=== PATIENT | female | born 1965 | race Caucasian/White ===

== ENCOUNTER 2016-06-25 19:34 | Emergency (ER) | payer MEDICAID, OTHER ==
[2016-06-25] MEDS ORDERED: IBUPROFEN 600 MG TABLET PO STA (21:05)
[2016-06-25] MEDS ORDERED: ACETAMINOPHEN 325 MG TABLET PO STA (21:06)
[2016-06-25] MEDS ORDERED: ACETAMINOPHEN 325 MG TABLET PO ONE (21:11)
[2016-06-25] MEDS ORDERED: IBUPROFEN 600 MG TABLET PO ONE (21:11)
== END 2016-06-25 21:30 | disposition home or self-care (01) ==
DX: S90.31XA Contusion of right foot, initial encounter (principal); W20.8XXA Other cause of strike by thrown, projected or falling object, initial encounter; Y99.0 Civilian activity done for income or pay; I10 Essential (primary) hypertension; Z87.42 Personal history of other diseases of the female genital tract; Z87.442 Personal history of urinary calculi; M19.90 Unspecified osteoarthritis, unspecified site; F17.200 Nicotine dependence, unspecified, uncomplicated
CPT/HCPCS: 1040M; 73630; 99282; 99283; A9270

== ENCOUNTER 2016-10-22 08:18 | Outpatient (CLI) | payer MEDICAID ==
[2016-10-22 13:19] LABS: BASOPHILS # (AUTO) 0.1 10^3/uL (0.0-0.1); BASOPHILS % (AUTO) 1.2 %; EOSINOPHILS # (AUTO) 0.1 10^3/uL (0.0-0.7); EOSINOPHILS % (AUTO) 2.3 %; HGB - HEMOGLOBIN 14.6 g/dL (12.0-16.0); LYMPHOCYTES # (AUTO) 2.2 10^3/uL (1.5-3.5); LYMPHOCYTES % (AUTO) 36.8 %; MEAN CORPUSCULAR HEMOGLOBIN 29.9 pg (27.0-31.0); MEAN CORPUSCULAR HGB CONC 33.9 g/dL (32.0-36.0); MEAN CORPUSCULAR VOLUME 88.2 fL (81.0-99.0); MEAN PLATELET VOLUME 9.4 fL (7.9-10.8); MONOCYTES # (AUTO) 0.4 10^3/uL (0.0-1.0); MONOCYTES % (AUTO) 7.3 %; NEUTROPHILS # (AUTO) 3.2 10^3/uL (1.5-6.6); NEUTROPHILS % (AUTO) 52.4 %; RED BLOOD COUNT 4.87 10^6/uL (4.20-5.40); RED CELL DISTRIBUTION WIDTH 13.4 % (12.0-15.0)
[2016-10-22 13:42] LABS: ALBUMIN/GLOBULIN RATIO 1.3 (1.0-2.2); BILIRUBIN,TOTAL 0.3 mg/dL (0.2-1.0); BUN - BLOOD UREA NITROGEN 15 mg/dL (6-20); CALCIUM 9.1 mg/dL (8.5-10.3); CARBON DIOXIDE - CO2 25 mmol/L (21-32); CHLORIDE 108 mmol/L (101-111); CHOL/HDL RATIO 4.4 (<4.4); CHOLESTEROL 233 mg/dL; CREATININE 0.9 mg/dL (0.4-1.0); GFR - MDRD 67 (>89); GLUCOSE 80 mg/dL (70-100); HDL CHOLESTEROL 53 mg/dL; LDL/HDL RATIO 2.8 (<4.4); SODIUM 140 mmol/L (135-145); TOTAL PROTEIN 6.9 g/dL (6.7-8.2); TRIGLYCERIDES 148 mg/dL; VLDL CHOLESTEROL 30 mg/dL
== END 2016-10-22 08:19 | disposition home or self-care (01) ==
LOC: LAB.N 08:18
PROVIDERS: ATTEND Family Medicine
DX: I10 Essential (primary) hypertension (principal); F17.210 Nicotine dependence, cigarettes, uncomplicated
CPT/HCPCS: 36415; 80050; 80061

== ENCOUNTER 2016-11-11 14:36 | Outpatient (CLI) | payer MEDICAID ==
--- NOTE | 2016-11-12 11:36 | XRAY Report ---
TWO VIEW LEFT SHOULDER: 11/11/2016 CLINICAL HISTORY: Pain. FINDINGS: There is no fracture, focus of destruction, or malalignment. Mild degenerative changes are noted at the acromioclavicular and glenohumeral joints. The coracoclavicular relationship is preserv ed. The soft tissues are normal. The visualized lung apex is clear. IMPRESSION: MILD DEGENERATIVE CHANGES. NO ACUTE PROCESS. JOB #: [id number] EXT JOB #:[id number]
== END 2016-11-11 14:37 | disposition home or self-care (01) ==
LOC: DI.N 14:36
PROVIDERS: ATTEND Family Medicine
DX: M19.012 Primary osteoarthritis, left shoulder (principal)

== ENCOUNTER 2017-02-18 09:37 | Outpatient (CLI) | payer MEDICAID ==
--- NOTE | 2017-02-18 16:07 | MRI Report ---
EXAM: LEFT SHOULDER MRI WITHOUT CONTRAST EXAM DATE: 02/18/2017 10:17 AM. CLINICAL HISTORY: Shoulder pain, left. COMPARISON: None. TECHNIQUE: Multiplanar, multisequence T1-weighted and fluid-sensitive sequences of the shoulder witho ut contrast. Other: None. FINDINGS: Acromioclavicular Region: The acromion is type II. AC joint is moderately osteoarthritic. The coracoa cromial and coracoclavicular ligaments are intact. Trace amount of bursal fluid. Glenohumeral Region: No subluxation. No effusion or loose bodies. The articular cartilage is unremark able. The glenohumeral ligaments and joint capsule are unremarkable. Bone Marrow: No fracture, marrow edema or bone lesions. Labrum: The labrum is unremarkable on this nonarthrographic study. Musculature/Rotator Cuff: Some increased T2 signal seen in the distal supraspinatus and infraspinatus portions of the cuff without partial or full-thickness fluid-filled gap. Subscapularis and teres min or are normal. No proximal muscular edema or fatty atrophy. Biceps Tendon: The long head of the biceps tendon and biceps colin are intact. Other: The subcutaneous tissues are unremarkable. IMPRESSION: 1. Type II unipartite undersurface osseous acromion shape. AC joint is moderately osteoarthritic. Tra ce amount of bursal fluid is seen. 2. Tendinopathy seen distal supraspinatus and infraspinatus. No partial or full-thickness fluid-fille d gaps are identified. No proximal muscular edema or fatty atrophy. [facility] MUSCULOSKELETAL [facility] SECTION Referring Provider Line: [phone] SITE ID: [id number]
== END 2017-02-18 09:38 | disposition home or self-care (01) ==
LOC: DI 09:37
PROVIDERS: ATTEND Family Medicine
DX: M19.012 Primary osteoarthritis, left shoulder (principal); M75.92 Shoulder lesion, unspecified, left shoulder

== ENCOUNTER 2017-07-04 23:47 | Emergency (ER) | payer MEDICAID ==
--- NOTE | 2017-07-05 01:09 | XRAY Report ---
EXAM: RIGHT WRIST RADIOGRAPHY EXAM DATE: 07/05/2017 01:01 AM. CLINICAL HISTORY: Wrist pain after injury. COMPARISON: 04/11/2006. TECHNIQUE: 2 views. FINDINGS: Bones: No fracture seen. Joints: No dislocation. Joint spaces appear intact. Soft Tissues: There may be minimal soft tissue swelling. IMPRESSION: 1. No acute fracture or dislocation seen. [facility] Referring Provider Line: [phone] SITE ID: [id number]
--- NOTE | 2017-07-05 01:10 | XRAY Preliminary Report ---
Exam: XR SHOULDER 2 VIEW RT IMPRESSION: 1. No acute abnormality seen in the shoulder. [facility] SITE ID: [id number]
--- NOTE | 2017-07-05 01:10 | XRAY Report ---
EXAM: RIGHT SHOULDER RADIOGRAPHY EXAM DATE: 07/05/2017 01:01 AM. CLINICAL HISTORY: Shoulder pain after injury. COMPARISON: None. TECHNIQUE: 2 views. FINDINGS: Bones: No fracture seen. Joints: The glenohumeral and acromioclavicular joints are intact. Soft tissues: Grossly unremarkable. IMPRESSION: 1. No acute abnormality seen in the shoulder. [facility] Referring Provider Line: [phone] SITE ID: [id number]
--- NOTE | 2017-07-05 01:12 | XRAY Preliminary Report ---
Exam: XR ELBOW 3 VIEW RT IMPRESSION: 1. Soft tissue swelling. No acute osseous abnormality seen. [facility] SITE ID: [id number]
--- NOTE | 2017-07-05 01:12 | XRAY Report ---
EXAM: RIGHT ELBOW RADIOGRAPHY EXAM DATE: 07/05/2017 01:00 AM. CLINICAL HISTORY: Elbow pain and swelling after injury. COMPARISON: None. TECHNIQUE: 3 views. FINDINGS: Bones: No acute fracture seen. Joints: No dislocation. Joint spaces are relatively well-preserved. No joint effusion identified. Soft Tissues: Soft tissue swelling. IMPRESSION: 1. Soft tissue swelling. No acute osseous abnormality seen. [facility] Referring Provider Line: [phone] SITE ID: [id number]
--- NOTE | 2017-07-05 01:13 | XRAY Preliminary Report ---
Exam: XR HIP W/PELVIS 2-3V RT IMPRESSION: 1. No acute abnormality seen in the pelvis or hip. [facility] SITE ID: [id number]
--- NOTE | 2017-07-05 01:13 | XRAY Report ---
EXAM: RIGHT HIP AND PELVIS RADIOGRAPHY EXAM DATE: 07/05/2017 01:00 AM. HISTORY: Right hip pain after injury. COMPARISONS: None. TECHNIQUE: 1 view of the pelvis and 1 view of the hip. FINDINGS: Bones: No fracture seen. Joints: The bilateral hip, pubis symphysis, and sacroiliac joints are preserved. Soft Tissues: Grossly unremarkable. IMPRESSION: 1. No acute abnormality seen in the pelvis or hip. [facility] Referring Provider Line: [phone] SITE ID: [id number]
--- NOTE | 2017-07-05 01:14 | ED Physician Documentation ---
PD HPI Fall - Stated complaint Stated Complaint: FALL - Chief complaint Chief Complaint: Trauma Ext - History obtained from History obtained from: Patient, Family - History of Present Illness Mechanism of injury: Slipped Fall distance: Standing position Where injury occurred: Street Timing - onset: Today Injury(ies) location: Right Upper Extremity, Right Lower Extremity Quality of pain: Pain, Aching Associated symptoms: No: LOC, AMS, Amnesia Contributing factors: Intoxicated Similar symptoms before: Has not had sx before Recently seen: Not recently seen - Additional information Additional information: Patient is a 52 year old female who presented to the emergency department after falling. According to patient and her mother patient was at an event tonight and had been drinking some wine. Patient slipped and fell. There were paramedics who treated the patient with ice. Patient did not hit her head and denies any loc. As patient was driven home she developed more tenderness and swelling. the symptoms were worse in her right elbow but patient reports pain in her right shoulder, ribs, elbow, wrist and hip. Review of Systems Eyes: denies: Decreased vision, Photophobia Ears: denies: Drainage/discharge Nose: denies: Epistaxis Cardiac: denies: Chest pain / pressure GI: reports: Nausea, Vomiting : reports: Reviewed and negative Skin: reports: Abrasion (s). 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: Ovarian cysts : Kidney stones HEENT: Other Psych: None Musculoskeletal: Osteoarthritis Derm: None - Past Surgical History Past Surgical History: Yes Ortho: ACL reconstruction, Arthroscopic surgery, Other /LAND MOBILE RADIO TECHNICIAN: Dilation and currettage, Other - Present Medications Home Medications: Ambulatory Orders Medication Instructions Recorded Confirmed Lisinopril 10 mg PO DAILY 06/25/16 06/25/16 Gabapentin 1 tab PO DAILY 07/04/17 07/04/17 Meloxicam 1 tab PO DAILY 07/04/17 07/04/17 Methocarbamol [Robaxin] 1 tab PO DAILY 07/04/17 07/04/17 - Allergies Allergies/Adverse Reactions: Allergies Allergy/AdvReac Type Severity Reaction Status Date / Time oxycodone HCl * AdvReac Mild Itching Verified 07/04/17 23:54 [From Percocet] propoxyphene napsylate * AdvReac Mild Itching Verified 07/04/17 23:54 [From Darvocet-N] hydromorphone HCl * AdvReac Itching Verified 07/04/17 23:54 [From Dilaudid] - Social History Does the pt smoke?: Yes Smoking Status: Current every day smoker Does the pt drink ETOH?: Yes Does the pt have substance abuse?: No - Immunizations Immunizations are current?: Yes - POLST Patient has POLST: No PD ED PE NORMAL - Vitals Vital signs reviewed: Yes - General General: Alert and oriented X 3, No acute distress - HEENT HEENT: Atraumatic - Neck Neck: No bony TTP - Cardiac Cardiac: RRR, No murmur - Respiratory Respiratory: No respiratory distress - Abdomen Abdomen: Soft - Neuro Neuro: Alert and oriented X 3, No motor deficit, Normal speech Eye Opening: Spontaneous Motor: Obeys Commands Verbal: Oriented GCS Score: 15 PD ED PE EXPANDED - Cardiac Cardiac: Chest wall TTP (mild tenderness to palpation of right chest wall) - Derm Derm: Abrasion (s), Bruising - Extremities Extremities: Right elbow (tenderness, ecchymosis and swelling ), Right forearm ( superficial abrasion), Right wrist (tenderness to palpation), Right hip ( tenderness to palpation ) Results - Vitals Vitals: Vital Signs - 24 hr 07/04/17 07/05/17 23:51 01:46 Temperature 36.0 C L Heart Rate 74 70 Respiratory 18 16 Rate Blood Pressure 199/101 H 165/90 H O2 Saturation 100 98 Oxygen O2 Source Room air - Rads (name of study) right shoulder Radiology: Final report received (normal) right elbow Radiology: Final report received (swelling but no fracture or dislocation) right wrist Radiology: Final report received (normla) rib series Radiology: Final report received (normal) right hip Radiology: Final report received (normal) PD MEDICAL DECISION MAKING - ED course Complexity details: reviewed old records, reviewed results, re-evaluated patient , considered differential, d/w patient, d/w family ED course: Patient was seen and examined at bedside. Patient was awake, alert and oriented but mildly intoxicated. Patient was sent for imaging. when patient returned the results were reviewed. there was no acute fractures or dislocation. Patient was wrapped in an gemini bandage and placed in a sling. patient required no further work up and was stable for discharge with outpatient follow up. Departure - Departure Disposition: 01 Home, Self Care Clinical Impression: Elbow injury Condition: Good Instructions: ED Hematoma Follow-Up: Sánchez Barroso MD [Primary Care Provider] - As Needed Comments: Your diagnostics today were within normal limits. There is no acute fracture or dislocation appreciated. You should ice your wounds 4-6 hours a day. You can take motrin or tylenol as needed for pain. You should keep your abrasions clean and dry. You should follow up with your doctor if your symptoms don't improve in the next 10-14 days. You may return to the emergency department at any time for new, worsening or uncontrollable symptoms.
--- NOTE | 2017-07-05 01:16 | XRAY Report ---
EXAM: RIGHT RIB RADIOGRAPHY EXAM DATE: 07/05/2017 01:00 AM. CLINICAL HISTORY: Right rib pain after injury. COMPARISON: Chest, 07/11/2014. TECHNIQUE: 1 view of the chest and 4 views of the ribs. FINDINGS: Bones: No fracture seen. Lungs: No alveolar consolidation or pleural effusion. No pneumothorax. Mediastinum: Within exam limitations, cardiomediastinal silhouette is unremarkable. Other: None. IMPRESSION: 1. No acute abnormality seen in the chest or ribs. [facility] Referring Provider Line: [phone] SITE ID: [id number]
--- NOTE | 2017-07-05 01:16 | XRAY Preliminary Report ---
Exam: XR RIBS W/PA CHEST RT IMPRESSION: 1. No acute abnormality seen in the chest or ribs. [facility] SITE ID: [id number]
[2017-07-05 01:47] VITALS: BP 165/90
== END 2017-07-05 01:47 | disposition home or self-care (01) ==
LOC: ED 23:47
DX: S59.901A Unspecified injury of right elbow, initial encounter (principal); S50.01XA Contusion of right elbow, initial encounter; S50.811A Abrasion of right forearm, initial encounter; W01.0XXA Fall on same level from slipping, tripping and stumbling without subsequent striking against object, initial encounter; Y92.410 Unspecified street and highway as the place of occurrence of the external cause; I10 Essential (primary) hypertension; F17.200 Nicotine dependence, unspecified, uncomplicated
CPT/HCPCS: 99282; 99283

== ENCOUNTER 2017-07-09 12:35 | Outpatient (CLI) | payer MEDICAID ==
--- NOTE | 2017-07-09 14:39 | MRI Report ---
EXAM: MRI CERVICAL SPINE WITHOUT CONTRAST EXAM DATE: 07/09/2017 01:28 PM. CLINICAL HISTORY: 52-year-old with 3 month history of neck pain and one year history of left shoulder . Patient experiences numbness and tingling down left arm while turning head. COMPARISONS: None. TECHNIQUE: Multiplanar, multisequence T1-weighted and fluid-sensitive sequences of the cervical spine without contrast. Other: None. FINDINGS: Neurologic Structures: The visualized posterior fossa structures are unremarkable. There is flattenin g of the ventral aspect of the cervical cord seen at C5-C6. There is no convincing evidence of T2 sig nal hyperintensity seen within the cord at this level. Alignment: Straightening of the normal cervical lordosis. There is 2 mm of posterior subluxation of C 5 on C6. There is 2 mm of anterior subluxation of C7 on T1. Bone Marrow: No acute fracture. There is endplate edema seen at C4-C5 and C5-C6 that may be degenerat ana in nature. No marrow replacing lesion. Interspace Levels/Facets: C1-C2: Unremarkable. C2-C3: Mild loss of disk height and disk desiccation. Small central disk osteophyte complex. Bilatera l uncovertebral osteophyte and arthritic facet disease. Mild to moderate spinal canal stenosis. Mild bilateral neuroforaminal narrowing. C3-C4: Mild endplate degenerative change with mild loss of disk height and disk desiccation. Small po sterior disk osteophyte complex. Bilateral uncovertebral osteophyte and arthritic facet disease. Mild to moderate spinal canal stenosis. Moderate to severe right and mild left neural from narrowing. C4-C5: Mild endplate degenerative change, mild loss of disk height, disk desiccation. Small posterior disk osteophyte complex. Bilateral uncovertebral osteophyte and arthritic facet disease. Mild spinal canal stenosis and effacement of the right lateral recess. Moderate to severe right and moderate lef t neural foraminal narrowing. C5-C6: Moderate endplate degenerative change with moderate loss of disk height and disk desiccation. Small posterior disk osteophyte complex. Prominent ligamentum flavum thickening. Bilateral uncoverteb ral osteophyte and arthritic facet disease. Moderate spinal canal stenosis. Severe bilateral neural f oraminal narrowing. C6-C7: Mild endplate degenerative change with mild loss of disk height and disk desiccation. Small po sterior disk osteophyte complex. Bilateral arthritic facet disease. Mild to moderate spinal canal yassine nosis. Moderate bilateral neural foraminal narrowing. C7-T1: Unremarkable. Musculature: Normal. No edema or fatty atrophy. Other: The paravertebral and prevertebral soft tissues are normal. IMPRESSION: 1. Straightening of the normal cervical lordosis. 2. There is 2 mm of posterior subluxation of C5 on C6. There is 2 mm of anterior subluxation of C7 on T1. 3. There is flattening of the ventral aspect of the cervical cord seen at C5-C6. There is no convinci ng evidence of T2 signal hyperintensity seen within the cord at this level. 4. Moderate multilevel degenerative changes. C2-C3: Mild to moderate spinal canal stenosis. Mild bilateral neuroforaminal narrowing. C3-C4: Mild to moderate spinal canal stenosis. Moderate to severe right and mild left neural from kristy rowing. C4-C5: Mild spinal canal stenosis and effacement of the right lateral recess. Moderate to severe righ t and moderate left neural foraminal narrowing. C5-C6: Moderate spinal canal stenosis. Severe bilateral neural foraminal narrowing. C6-C7: Mild to moderate spinal canal stenosis. Moderate bilateral neural foraminal narrowing [facility] Referring Provider Line: [phone] SITE ID: [id number]
== END 2017-07-09 12:36 | disposition home or self-care (01) ==
LOC: DI 12:35
PROVIDERS: ATTEND Orthopaedic Surgery
DX: M50.31 Other cervical disc degeneration, high cervical region (principal); M47.892 Other spondylosis, cervical region; M43.12 Spondylolisthesis, cervical region
CPT/HCPCS: 72141

== ENCOUNTER 2017-07-22 08:00 | Outpatient (CLI) | payer MEDICAID ==
[2017-07-22 13:14] LABS: CREATININE 0.9 mg/dL (0.4-1.0)
== END 2017-07-22 08:01 | disposition home or self-care (01) ==
LOC: LAB.N 08:00
PROVIDERS: ATTEND Family Medicine
DX: I10 Essential (primary) hypertension (principal)
CPT/HCPCS: 36415; 80048

== ENCOUNTER 2018-07-21 13:34 | Outpatient (CLI) | payer MEDICAID ==
--- NOTE | 2018-07-21 15:14 | XRAY Report ---
Reason: HAND JOINT PAIN,LEFT Procedure Date: 07/21/2018 Accession Number: [id number] / [id number] Procedure: XRN - Hand 3 View LT CPT Code: FULL RESULT: EXAM: LEFT HAND RADIOGRAPHY. EXAM DATE: 07/21/2018 02:09 PM. CLINICAL HISTORY: Hand joint pain, left. COMPARISON: XR RIGHT WRIST 3V 04/11/2006 6:46 PM. TECHNIQUE: 3 views. FINDINGS: Bones: Normal. No fractures or bone lesions. Joints: Mild degenerative changes at the base of the thumb, no subluxation. Soft Tissues: No radiopaque foreign body. IMPRESSION: Mild degenerative changes. [facility]
== END 2018-07-21 13:35 | disposition home or self-care (01) ==
LOC: DI.N 13:34
PROVIDERS: ATTEND Nurse Practitioner
DX: M19.042 Primary osteoarthritis, left hand (principal)

== ENCOUNTER 2018-08-18 12:23 | Emergency (ER) | payer MEDICAID ==
[2018-08-18 12:28] VITALS: BP 123/76
[2018-08-18] MEDS ORDERED: AMOX/CLAV 875 MG/125 MG TABLET PO STA (12:34)
[2018-08-18] MEDS ORDERED: TETANUS/DIPHTHERIA/PERTUSSIS 0.5 ML SYRINGE IM ONE (12:34)
--- NOTE | 2018-08-18 12:36 | ED Physician Documentation ---
PD HPI ANIMAL BITE - Stated complaint Stated Complaint: CAT BITE ON LT LEG - Chief complaint Chief Complaint: Wound - History obtained from History obtained from: Patient - History of Present Illness Location of injury(ies): LLE (About a week ago her own cat bit her on the back of the left leg as she was breaking up a fight between the cat and a dog. Her tetanus is unknown. She did take 4 days of plain amoxicillin when it started to look infected but ran out. 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: Ovarian cysts : Kidney stones HEENT: Other Psych: None Musculoskeletal: Osteoarthritis Derm: None - Past Surgical History Past Surgical History: Yes Ortho: ACL reconstruction, Arthroscopic surgery, Other /LASER CUTTER: Dilation and currettage, Other - Present Medications Home Medications: Ambulatory Orders Medication Instructions Recorded Confirmed Lisinopril 10 mg PO DAILY 06/25/16 06/25/16 Gabapentin 1 tab PO DAILY 07/04/17 07/04/17 Meloxicam 1 tab PO DAILY 07/04/17 07/04/17 Methocarbamol [Robaxin] 1 tab PO DAILY 07/04/17 07/04/17 Amox/Clav 875/125 [Augmentin] 1 each PO Q12H #20 tablet 08/18/18 - Allergies Allergies/Adverse Reactions: Allergies Allergy/AdvReac Type Severity Reaction Status Date / Time oxycodone HCl * AdvReac Mild Itching Verified 08/18/18 12:28 [From Percocet] propoxyphene napsylate * AdvReac Mild Itching Verified 08/18/18 12:28 [From Darvocet-N] hydromorphone HCl * AdvReac Itching Verified 08/18/18 12:28 [From Dilaudid] - Social History Does the pt smoke?: Yes Smoking Status: Current every day smoker Does the pt drink ETOH?: Yes Does the pt have substance abuse?: No - Immunizations Immunizations are current?: Yes - POLST Patient has POLST: No PD ED PE NORMAL - Vitals Vital signs reviewed: Yes - General General: Alert and oriented X 3, No acute distress - Extremities Extremities: Other (Several puncture wounds to the left calf, with mild infection. Just a drop of purulent material was obtained from 1 of them. No fluctuant abscess. No severe cellulitis.) Results - Vitals Vitals: Vital Signs - 24 hr 08/18/18 12:26 Temperature 36.5 C Heart Rate 78 Respiratory 18 Rate Blood Pressure 123/76 O2 Saturation 100 Oxygen O2 Source Room air Departure - Departure Disposition: Home, Self Care Clinical Impression: Cat bite of left lower leg with infection Qualifiers: Encounter type: initial encounter Qualified Code(s): S81.852A - Open bite, left lower leg, initial encounter; L08.9 - Local infection of the skin and subcutaneous tissue, unspecified; W55.01XA - Bitten by cat, initial encounter Condition: Good Record reviewed to determine appropriate education?: Yes Instructions: ED Bite Animal General Prescriptions: Amox/Clav 875/125 [Augmentin] 1 each PO Q12H #20 tablet Comments: We are performing a wound culture, the results should be done in 48-72 hours. If antibiotic change is necessary we will call you. Return if worse in the meantime, especially if you develop increased pain, fevers, cannot keep down the medication. Otherwise follow-up with your physician in approximately 2-3 days.
== END 2018-08-18 13:01 | disposition home or self-care (01) ==
LOC: ED 12:23
DX: S81.852D Open bite, left lower leg, subsequent encounter (principal); L08.9 Local infection of the skin and subcutaneous tissue, unspecified; I10 Essential (primary) hypertension; F17.200 Nicotine dependence, unspecified, uncomplicated
CPT/HCPCS: 87070; 87205; 90471; 90715; 99283; A9270

== ENCOUNTER 2018-10-07 19:24 | Emergency (ER) | payer MEDICAID ==
[2018-10-07 19:50] LABS: BASOPHILS # (AUTO) 0.1 10^3/uL (0.0-0.1); BASOPHILS % (AUTO) 0.7 %; EOSINOPHILS # (AUTO) 0.1 10^3/uL (0.0-0.7); EOSINOPHILS % (AUTO) 1.2 %; HGB - HEMOGLOBIN 13.2 g/dL (12.0-16.0); LYMPHOCYTES # (AUTO) 1.5 10^3/uL (1.5-3.5); LYMPHOCYTES % (AUTO) 20.7 %; MEAN CORPUSCULAR HEMOGLOBIN 29.3 pg (27.0-31.0); MEAN CORPUSCULAR HGB CONC 32.6 g/dL (32.0-36.0); MEAN PLATELET VOLUME 10.2 fL (7.9-10.8); MONOCYTES # (AUTO) 0.4 10^3/uL (0.0-1.0); MONOCYTES % (AUTO) 5.4 %; NEUTROPHILS # (AUTO) 5.2 10^3/uL (1.5-6.6); NEUTROPHILS % (AUTO) 71.7 %; PLT - PLATELET COUNT 209 10^3/uL (130-450); RED CELL DISTRIBUTION WIDTH 13.1 % (12.0-15.0); WHITE BLOOD COUNT 7.2 x10^3/uL (4.8-10.8)
[2018-10-07 20:00] LABS: ALBUMIN/GLOBULIN RATIO 1.2 (1.0-2.2); BILIRUBIN,TOTAL 0.7 mg/dL (0.2-1.0); CALCIUM 9.2 mg/dL (8.5-10.3); TOTAL PROTEIN 7.3 g/dL (6.7-8.2)
--- NOTE | 2018-10-07 20:37 | ED Physician Documentation ---
History of Present Illness - Stated complaint Stated Complaint: NEAR SYNCOPE - Chief complaint Chief Complaint: General - History obtained from History obtained from: Patient, Family - History of Present Illness Timing: Today Pain level max: 0 Pain level now: 0 - Additonal information Additional information: 53-year-old female with near syncopal events x2 over the past week. She has been having worsening chronic neck pain over that time as well. No chest pain. No palpitations. Family reports that she turns pale, sweaty and feels lightheaded like she is going to pass out. No changes to her medications. Worse with standing, better with sitting or lying down. 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: Ovarian cysts : Kidney stones HEENT: Other Psych: None Musculoskeletal: Osteoarthritis Derm: None - Past Surgical History Past Surgical History: Yes Ortho: ACL reconstruction, Arthroscopic surgery, Other /DESK MAKER: Dilation and currettage, Other - Present Medications Home Medications: Ambulatory Orders Medication Instructions Recorded Confirmed Lisinopril 10 mg PO DAILY 06/25/16 06/25/16 Gabapentin 1 tab PO DAILY 07/04/17 07/04/17 Meloxicam 1 tab PO DAILY 07/04/17 07/04/17 Methocarbamol [Robaxin] 1 tab PO DAILY 07/04/17 07/04/17 Amox/Clav 875/125 [Augmentin] 1 each PO Q12H #20 tablet 08/18/18 - Allergies Allergies/Adverse Reactions: Allergies Allergy/AdvReac Type Severity Reaction Status Date / Time oxycodone HCl * AdvReac Mild Itching Verified 10/07/18 19:29 [From Percocet] propoxyphene napsylate * AdvReac Mild Itching Verified 10/07/18 19:29 [From Darvocet-N] hydromorphone HCl * AdvReac Itching Verified 10/07/18 19:29 [From Dilaudid] - Social History Does the pt smoke?: Yes Smoking Status: Current every day smoker Does the pt drink ETOH?: Yes Does the pt have substance abuse?: No - Immunizations Immunizations are current?: Yes - POLST Patient has POLST: No PD ED PE NORMAL - Vitals Vital signs reviewed: Yes - General General: Alert and oriented X 3, No acute distress, Well developed/nourished - HEENT HEENT: Atraumatic, PERRL, Moist mucous membranes - Neck Neck: Supple, no meningeal sign, No JVD, No bruit - Cardiac Cardiac: RRR, No murmur, Strong equal pulses - Respiratory Respiratory: No respiratory distress, Clear bilaterally - Abdomen Abdomen: Soft, Non tender, Non distended - Derm Derm: Warm and dry - Extremities Extremities: No edema, No calf tenderness / cord - Neuro Neuro: Alert and oriented X 3, 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, No motor deficit, No sensory deficit, Normal speech Eye Opening: Spontaneous Motor: Obeys Commands Verbal: Oriented GCS Score: 15 - Psych Psych: Normal mood, Normal affect Results - Vitals Vitals: Vital Signs - 24 hr 10/07/18 10/07/18 10/07/18 19:26 19:48 21:06 Temperature 36.3 C L Heart Rate 74 75 65 Respiratory 19 18 15 Rate Blood Pressure 132/75 H 132/82 H 147/83 H O2 Saturation 100 97 97 10/07/18 10/07/18 21:09 21:24 Temperature 36.2 C L 36.4 C L Heart Rate 63 73 Respiratory 14 18 Rate Blood Pressure 134/79 H 147/83 H O2 Saturation 97 98 Oxygen O2 Source Room air - EKG (time done) 1938 Rate: Rate (enter#) (70) Rhythm: NSR [place]: Normal Intervals: Normal [place] QRS: Normal Ischemia: ST depression (minimal lateral leads) Compare to prior EKG: Old EKG unavailable - Labs Labs: Laboratory Tests 10/07/18 10/07/18 10/07/18 19:42 19:42 19:42 WBC 7.2 RBC 4.50 Hgb 13.2 Hct 40.5 MCV 90.0 MCH 29.3 MCHC 32.6 RDW 13.1 Plt Count 209 MPV 10.2 Neut # (Auto) 5.2 Lymph # (Auto) 1.5 [place] # (Auto) 0.4 Eos # (Auto) 0.1 Baso # (Auto) 0.1 Absolute Nucleated RBC 0.00 Nucleated RBC % 0.0 Sodium 140 Potassium 3.6 Chloride 104 Carbon Dioxide 23 Anion Gap 13.0 BUN 17 Creatinine 1.0 Estimated GFR (MDRD) 58 L Glucose 157 H Calcium 9.2 Total Bilirubin 0.7 AST 19 ALT 17 Alkaline Phosphatase 81 Troponin I < 0.04 Total Protein 7.3 Albumin 4.0 Globulin 3.3 Albumin/Globulin Ratio 1.2 Lipase 37 PD MEDICAL DECISION MAKING - ED course Complexity details: considered differential, d/w patient ED course: Patient with near syncope of unclear etiology. She has been rubbing the side of her neck and possible that she has massage in her carotid creating a vagal response? Possible related to pain from her neck?. No arrhythmias on telemetry. Recommend a Holter monitor with her doctor. No chest pain or palpitations. Her family states that when they palpate her pulse during these events it feels regular. Will follow up with her PCP for further care. Patient counseled regarding signs and symptoms for which I believe and urgent re-evaluation would be necessary. Patient with good understanding of and agreement to plan and is comfortable going home at this time This document was made in part using voice recognition software. While efforts are made to proofread this document, sound alike and grammatical errors may occur. Departure - Departure Disposition: 01 Home, Self Care Clinical Impression: Near syncope Condition: Good Instructions: ED Near Syncope Unkn, ED Near Syncope Vasovagal Follow-Up: CECILY VAIL MD [Primary Care Provider] - Within 1 week Comments: The cause of her symptoms is unclear today. It may be related to your chronic neck pain. There are no arrhythmias on telemetry today. Your EKG does not show any acute abnormalities. Follow-up with your doctor for further care. They may want you to wear a electronic device monitor to ensure that there are no arrhythmias. Discharge Date/Time: 10/07/18 21:25
[2018-10-07 21:25] VITALS: BP 147/83
== END 2018-10-07 21:25 | disposition home or self-care (01) ==
LOC: ED 19:24
DX: R55 Syncope and collapse (principal); I10 Essential (primary) hypertension; F17.200 Nicotine dependence, unspecified, uncomplicated
CPT/HCPCS: 36415; 80053; 83690; 84484; 85025; 93005; 99284

== ENCOUNTER 2018-10-21 16:25 | Outpatient (CLI) | payer MEDICAID | END 2018-10-21 16:26 | disposition critical access hospital (66) | LOC: EMS 16:25 | PROVIDERS: ATTEND Surgery | DX: R55 Syncope and collapse (principal) | CPT/HCPCS: A0425; A0427; A0999 ==

== ENCOUNTER 2018-10-21 17:03 | Emergency (ER) | payer MEDICAID ==
[2018-10-21] MEDS ORDERED: SODIUM CHLORIDE 0.9% 1,000 ML IV ONE (17:12)
--- NOTE | 2018-10-21 17:12 | ED Physician Documentation ---
History of Present Illness - Stated complaint Stated Complaint: NEAR SYNCOPE - History obtained from History obtained from: Patient - History of Present Illness Timing: Prior to arrival - Additonal information Additional information: 53-year-old female presenting with near syncopal episode that she believes is related to her chronic neck pain for which she has received extensive work-up and is scheduled for MRI at [facility] in the near future. Patient reports neck discomfort without inciting incident, trauma, or fall with subsequent nausea and vomiting. Patient denies actual syncope, injury, chest pain, shortness of breath, productive cough, fever, abdominal pain, urinary changes, or stool changes. Patient was seen for similar symptoms a few weeks ago in this ED. No other improving or worsening factors noted. Review of Systems Constitutional: denies: Fever Cardiac: denies: Chest pain / pressure Respiratory: denies: Dyspnea, Cough GI: reports: Nausea, Vomiting. 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, Other - Present Medications Home Medications: Ambulatory Orders Medication Instructions Recorded Confirmed RX: Lisinopril 10 mg PO DAILY 06/25/16 06/25/16 Methocarbamol [Robaxin] 1 tab PO DAILY 07/04/17 07/04/17 RX: Gabapentin 1 tab PO DAILY 07/04/17 07/04/17 RX: Meloxicam 1 tab PO DAILY 07/04/17 07/04/17 Amox/Clav 875/125 [Augmentin] 1 each PO Q12H #20 tablet 08/18/18 - Allergies Allergies/Adverse Reactions: Allergies Allergy/AdvReac Type Severity Reaction Status Date / Time oxycodone HCl * AdvReac Mild Itching Verified 10/21/18 17:15 [From Percocet] propoxyphene napsylate * AdvReac Mild Itching Verified 10/21/18 17:15 [From Darvocet-N] hydromorphone HCl * AdvReac Itching Verified 10/21/18 17:15 [From Dilaudid] - Social History Does the pt smoke?: Yes Smoking Status: Current every day smoker Does the pt drink ETOH?: Yes Does the pt have substance abuse?: No - Immunizations Immunizations are current?: Yes - POLST Patient has POLST: No PD ED PE NORMAL - Vitals Vital signs reviewed: Yes - General General: Alert and oriented X 3, No acute distress, Well developed/nourished - HEENT HEENT: Atraumatic, Moist mucous membranes - Neck Neck: Supple, no meningeal sign - Cardiac Cardiac: RRR, No murmur - Respiratory Respiratory: No respiratory distress, Clear bilaterally - Abdomen Abdomen: Normal bowel sounds, Soft, Non tender, Non distended - Derm Derm: Normal color, Warm and dry, No rash - Extremities Extremities: No deformity, No tenderness to palpate, No edema - Neuro Neuro: Alert and oriented X 3, No motor deficit, No sensory deficit - Psych Psych: Normal mood, Normal affect Results - Vitals Vitals: Vital Signs - 24 hr 10/21/18 10/21/18 10/21/18 17:09 18:03 19:47 Temperature 37.3 C 37.1 C Heart Rate 87 81 Heart Rate [ 76 Sitting] Heart Rate [ 75 Standing] Heart Rate [ 72 Supine] Respiratory 14 20 Rate Blood Pressure 99/69 92/72 Blood Pressure 95/75 [Sitting] Blood Pressure 87/73 L [Standing] Blood Pressure 98/76 [Supine] O2 Saturation 97 98 10/21/18 20:00 Temperature Heart Rate 70 Heart Rate [ Sitting] Heart Rate [ Standing] Heart Rate [ Supine] Respiratory 14 Rate Blood Pressure 95/73 Blood Pressure [Sitting] Blood Pressure [Standing] Blood Pressure [Supine] O2 Saturation 97 Oxygen O2 Source Room air - EKG (time done) 1715 Rate: Rate (enter#) (80) Rhythm: NSR - Labs Labs: Laboratory Tests 10/21/18 10/21/18 10/21/18 17:30 17:30 17:30 WBC 8.9 RBC 4.39 Hgb 12.9 Hct 39.8 MCV 90.7 MCH 29.4 MCHC 32.4 RDW 13.1 Plt Count 173 MPV 10.8 Neut # (Auto) 6.9 H Lymph # (Auto) 1.3 L [place] # (Auto) 0.6 Eos # (Auto) 0.1 Baso # (Auto) 0.1 Absolute Nucleated RBC 0.00 Nucleated RBC % 0.0 Sodium 143 Potassium 4.2 Chloride 107 Carbon Dioxide 24 Anion Gap 12.0 BUN 18 Creatinine 1.3 H Estimated GFR (MDRD) 43 L Glucose 81 Calcium 8.8 Total Bilirubin 0.6 AST 17 ALT 14 Alkaline Phosphatase 73 Troponin I < 0.04 Troponin I High Sens 2.3 Total Protein 6.7 Albumin 3.8 Globulin 2.9 Albumin/Globulin Ratio 1.3 Lipase 35 TSH Urine Color Urine Clarity Urine pH Ur Specific [place] Urine Protein Urine Glucose (UA) Urine Ketones Urine Occult Blood Urine Nitrite Urine Bilirubin Urine Urobilinogen Ur Leukocyte Esterase Ur Microscopic Review Urine Culture Comments Salicylates < 4.0 Urine Opiates Screen Ur Oxycodone Screen Urine Methadone Screen Ur Propoxyphene Screen Acetaminophen < 10 L Ur Barbiturates Screen Ur Tricyclics Screen Ur Phencyclidine Scrn Ur Amphetamine Screen U Methamphetamines Scrn U Benzodiazepines Scrn Urine Cocaine Screen U Cannabinoids Screen Ethyl Alcohol < 5.0 10/21/18 10/21/18 17:30 20:00 WBC RBC Hgb Hct MCV MCH MCHC RDW Plt Count MPV Neut # (Auto) Lymph # (Auto) [place] # (Auto) Eos # (Auto) Baso # (Auto) Absolute Nucleated RBC Nucleated RBC % Sodium Potassium Chloride Carbon Dioxide Anion Gap BUN Creatinine Estimated GFR (MDRD) Glucose Calcium Total Bilirubin AST ALT Alkaline Phosphatase Troponin I Troponin I High Sens Total Protein Albumin Globulin Albumin/Globulin Ratio Lipase TSH 1.96 Urine Color YELLOW Urine Clarity CLEAR Urine pH 7.0 Ur Specific [place] 1.010 Urine Protein TRACE Urine Glucose (UA) NEGATIVE Urine Ketones NEGATIVE Urine Occult Blood TRACE-INTA Urine Nitrite NEGATIVE Urine Bilirubin NEGATIVE Urine Urobilinogen 0.2 (NORMAL) Ur Leukocyte Esterase NEGATIVE Ur Microscopic Review NOT INDICATED Urine Culture Comments NOT INDICATED Salicylates Urine Opiates Screen POSITIVE H Ur Oxycodone Screen NEGATIVE Urine Methadone Screen NEGATIVE Ur Propoxyphene Screen NEGATIVE Acetaminophen Ur Barbiturates Screen NEGATIVE Ur Tricyclics Screen NEGATIVE Ur Phencyclidine Scrn NEGATIVE Ur Amphetamine Screen NEGATIVE U Methamphetamines Scrn NEGATIVE U Benzodiazepines Scrn NEGATIVE Urine Cocaine Screen NEGATIVE U Cannabinoids Screen POSITIVE H Ethyl Alcohol PD MEDICAL DECISION MAKING - ED course Complexity details: reviewed old records, reviewed results, re-evaluated patient, considered differential, d/w patient, d/w family ED course: Patient is presenting with chronic neck pain that then induces near syncopal episodes. Patient denies any trauma, injury, or fall to worsen her underlying pain or having sustained an injury from today's episode. Patient has been evaluated in the ED multiple times for this issue. Patient does present with hypotension and do feel that her blood pressure medication could be lowering her blood pressure too much, particularly as she admits to having lost a significant amount of weight post surgery. Patient has already been taken off of her HCTZ and discussed potentially reducing or stopping lisinopril under the guidance of her primary care physician. Patient's blood pressure also rebounded nicely with fluid. Also consider orthostatic hypotension, although orthostatics within normal limits in the ED, but advised patient of this potential and precautions for such. Have low suspicion for PE, ACS, CA, unstable angina, aneurysm, dissection, but considered. EKG did not reflect ischemia and cardiac enzymes within normal limits. No signs of significant anemia, acute kidney injury, electrode disturbance or other complication noted on screening lab work or urinalysis. However, drug screen did return positive for marijuana and opiates. Patient denies use of opiates, but admits to marijuana use and advised her on the potential side effects of both medications which could be contributing to her symptoms.At this time, feel that she is safe to discharge home, but recommended cessation of alcohol illicit substances, close follow-up with her primary care physician, supportive cares, strict return precautions. Departure - Departure Disposition: 01 Home, Self Care Clinical Impression: Vasovagal near-syncope, Hypotension Condition: Good Instructions: ED Hypotension All Causes, ED Near Syncope Unkn Follow-Up: your,doctor [Other] - Within 3 Days Comments: Please continue home medications as previously instructed and avoid alcohol, tobacco, and other illicit substances. Please contact your primary care physician tomorrow to discuss cutting back or stopping your blood pressure medication. Also recommend establishing follow-up with primary care physician in next 2 to 3 days, as well as surgeon as scheduled. Please get up from laying down, sitting, standing slowly to avoid lightheadedness. Recommend regular hydration and healthy diet. Return to ED sooner if experience worsening symptoms or have other concerns. Discharge Date/Time: 10/21/18 20:47
[2018-10-21 17:37] LABS: BASOPHILS # (AUTO) 0.1 10^3/uL (0.0-0.1); BASOPHILS % (AUTO) 0.6 %; EOSINOPHILS # (AUTO) 0.1 10^3/uL (0.0-0.7); EOSINOPHILS % (AUTO) 0.6 %; HGB - HEMOGLOBIN 12.9 g/dL (12.0-16.0); LYMPHOCYTES # (AUTO) 1.3 10^3/uL (1.5-3.5); LYMPHOCYTES % (AUTO) 14.7 %; MEAN CORPUSCULAR HEMOGLOBIN 29.4 pg (27.0-31.0); MEAN CORPUSCULAR HGB CONC 32.4 g/dL (32.0-36.0); MEAN CORPUSCULAR VOLUME 90.7 fL (81.0-99.0); MEAN PLATELET VOLUME 10.8 fL (7.9-10.8); MONOCYTES # (AUTO) 0.6 10^3/uL (0.0-1.0); MONOCYTES % (AUTO) 6.2 %; NEUTROPHILS # (AUTO) 6.9 10^3/uL (1.5-6.6); NEUTROPHILS % (AUTO) 77.7 %; PLT - PLATELET COUNT 173 10^3/uL (130-450); RED BLOOD COUNT 4.39 10^6/uL (4.20-5.40); RED CELL DISTRIBUTION WIDTH 13.1 % (12.0-15.0); WHITE BLOOD COUNT 8.9 x10^3/uL (4.8-10.8)
[2018-10-21 18:05] LABS: TROPONIN I < 0.04 ng/mL (<0.49)
[2018-10-21 18:07] LABS: BUN - BLOOD UREA NITROGEN 18 mg/dL (6-20); CARBON DIOXIDE - CO2 24 mmol/L (21-32); CHLORIDE 107 mmol/L (101-111); CREATININE 1.3 mg/dL (0.4-1.0); GFR - MDRD 43 (>89); GLUCOSE 81 mg/dL (70-100); SODIUM 143 mmol/L (135-145)
[2018-10-21 18:08] LABS: ALBUMIN 3.8 g/dL (3.2-5.5); ALBUMIN/GLOBULIN RATIO 1.3 (1.0-2.2); ALKALINE PHOSPHATASE 73 IU/L (42-121); ALT ALANINE AMINOTRANSFERASE 14 IU/L (10-60); AST ASPARTATE AMINOTRANSFERASE 17 IU/L (10-42); BILIRUBIN,TOTAL 0.6 mg/dL (0.2-1.0); CALCIUM 8.8 mg/dL (8.5-10.3); LIPASE 35 U/L (22-51); SALICYLATE < 4.0 mg/dL; TOTAL PROTEIN 6.7 g/dL (6.7-8.2)
[2018-10-21 18:09] LABS: ACETAMINOPHEN < 10 ug/mL (10-30)
[2018-10-21 20:03] VITALS: BP 95/73
[2018-10-21 20:06] LABS: MUDS CUTOFF CONCENTRATIONS CUTOFF CONC BELOW:
[2018-10-21 20:09] LABS: BILIRUBIN,URINE NEGATIVE (NEGATIVE); GLUCOSE, URINE (UA) NEGATIVE (NEGATIVE); KETONES,URINE (UA) NEGATIVE (NEGATIVE); LEUKOCYTE ESTERASE, URINE NEGATIVE (NEGATIVE); NITRITE,URINE NEGATIVE (NEGATIVE); OCCULT BLOOD,URINE TRACE-INTA (NEGATIVE); PROTEIN,URINE TRACE mg/dL (NEGATIVE); UROBILINOGEN,URINE 0.2 (NORMAL) E.U./dL (NORMAL)
[2018-10-21 20:10] LABS: CLARITY,URINE CLEAR (CLEAR)
[2018-10-21 20:18] LABS: AMPHETAMINE SCREEN,URINE NEGATIVE (NEGATIVE); BENZODIAZEPINES SCREEN, URINE NEGATIVE (NEGATIVE); COCAINE SCREEN URINE NEGATIVE (NEGATIVE); METHADONE SCREEN, URINE NEGATIVE (NEGATIVE); METHAMPHETAMINES SCREEN, URINE NEGATIVE (NEGATIVE); OPIATE SCREEN, URINE POSITIVE (NEGATIVE); OXYCODONE SCREEN, URINE NEGATIVE (NEGATIVE); PROPOXYPHENE SCREEN, URINE NEGATIVE (NEGATIVE); TRICYCLIC ANTIDEPRESSANT,URINE NEGATIVE (NEGATIVE)
== END 2018-10-21 20:47 | disposition home or self-care (01) ==
LOC: EDUNIT# → ED 17:03
DX: R55 Syncope and collapse (principal); I95.9 Hypotension, unspecified; G89.29 Other chronic pain; M54.2 Cervicalgia; I10 Essential (primary) hypertension; F17.200 Nicotine dependence, unspecified, uncomplicated
CPT/HCPCS: 36415; 80053; 80306; 80307; 80320; 80329; 81001; 81003; 83690; 84443; 84484; 85025; 87086; 96360; 96361; 99284

== ENCOUNTER 2018-12-08 13:22 | Outpatient (CLI) | payer MEDICAID ==
--- NOTE | 2018-12-12 00:51 | XRAY Report ---
Reason: knee pain R. Procedure Date: 12/08/2018 Accession Number: [id number] / [id number] Procedure: XRN - Knee 3 View RT CPT Code: FULL RESULT: EXAM: RIGHT KNEE RADIOGRAPHY EXAM DATE: 12/08/2018 02:12 PM. CLINICAL HISTORY: Fall on knee. Right knee pain. COMPARISON: None. TECHNIQUE: 3 views. FINDINGS: Bones: Normal. No fractures or bone lesions. Joints: Mild spurring and narrowing of the medial compartment. Large joint effusion. No subluxations. Soft Tissues: Unremarkable. IMPRESSION: 1. Large joint effusion. 2. Degenerative changes of the medial compartment. RADIA
== END 2018-12-08 13:23 | disposition home or self-care (01) ==
LOC: DI.N 13:22
PROVIDERS: ATTEND Family Medicine
DX: M17.11 Unilateral primary osteoarthritis, right knee (principal); M25.461 Effusion, right knee

== ENCOUNTER 2019-02-04 12:13 | Outpatient (CLI) | payer MEDICAID ==
--- NOTE | 2019-02-04 14:29 | MRI Report ---
Reason: RT KNEE JOINT PAIN Procedure Date: 02/04/2019 Accession Number: [id number] / [id number] Procedure: MRI - Knee RT W/O CPT Code: Final Report FULL RESULT: EXAM: RIGHT KNEE MRI WITHOUT CONTRAST EXAM DATE: 02/04/2019 01:03 PM. CLINICAL HISTORY: RT KNEE JOINT PAIN. COMPARISON: None. TECHNIQUE: Multiplanar, multisequence T1-weighted and fluid-sensitive sequences of the knee without contrast. Other: None. FINDINGS: Bones and articular cartilage: Marginal osteophytes at the femoral condyles, tibial plateau, patella, femoral trochlea. Grade III-IV chondromalacia at the medial femoral condyle. Focal grade III-IV chondromalacia at the medial aspect of the medial tibial plateau. Subchondral marrow edema at the medial tibial plateau. Small chronic appearing, mildly depressed fracture at the posterior margin of the lateral tibial plateau. Articular cartilage fissures at the lateral patellar facet. Anterior translation of the proximal tibia relative to the distal femur. Medial Meniscus: Complex tear and fraying at the posterior horn and body. Lateral Meniscus: Flap tear and degeneration at the posterior horn lateral meniscus. Cruciate Ligaments: Chronic ACL tear and ACL deficient knee. The posterior cruciate ligament is intact. Collateral Ligaments: The medial collateral and lateral collateral ligamentous structures are intact. Tendons: The quadriceps, patellar, semimembranosus, and popliteus tendons are unremarkable. Musculature: No edema or fatty atrophy. Other: Large joint effusion. No popliteal cyst. No loose bodies. The medial and lateral retinacula are intact. The subcutaneous tissues and fat pads are unremarkable. IMPRESSION: 1. Chronic ACL tear and ACL deficient knee. There is anterior translation of the proximal tibia relative to the distal femur due to ACL insufficiency. 2. Tricompartmental osteoarthritis which is most significant at the medial compartment. 3. Complex tear and fraying at the posterior horn and body of the medial meniscus. 4. Flap tear and degeneration at the posterior horn lateral meniscus. A portion of the posterior horn is displaced posterior inferiorly from the posterior aspect of the lateral compartment. 5. Large joint effusion. RADIA
== END 2019-02-04 12:14 | disposition home or self-care (01) ==
LOC: DI 12:13
PROVIDERS: ATTEND Orthopaedic Surgery Sports Medicine
DX: S83.511A Sprain of anterior cruciate ligament of right knee, initial encounter (principal); M17.11 Unilateral primary osteoarthritis, right knee; M94.261 Chondromalacia, right knee; S83.231A Complex tear of medial meniscus, current injury, right knee, initial encounter; S83.281A Other tear of lateral meniscus, current injury, right knee, initial encounter; M25.461 Effusion, right knee

== ENCOUNTER 2019-07-06 15:10 | Outpatient (CLI) | payer MEDICAID | END 2019-07-06 23:59 | disposition home or self-care (01) | LOC: LAB.R 15:10 | PROVIDERS: ATTEND Family Medicine | DX: R10.9 Unspecified abdominal pain (principal) | CPT/HCPCS: 87086 ==

== ENCOUNTER 2019-07-06 15:32 | Outpatient (CLI) | payer MEDICAID ==
--- NOTE | 2019-07-07 02:30 | XRAY Report ---
Reason: LEFT FLANK PAIN Procedure Date: 07/06/2019 Accession Number: [id number] / [id number] Procedure: WCP - Abdomen 1 View X-Ray CPT Code: 49267 Final Report FULL RESULT: EXAM: ABDOMEN RADIOGRAPHY EXAM DATE: 07/06/2019 03:32 PM. CLINICAL HISTORY: LEFT FLANK PAIN. COMPARISON: None. TECHNIQUE: 1 view. FINDINGS: Bowel Gas Pattern: Within normal limits. No dilated loops. Other: There are no radiopaque calculi in the region of the ureters and the bladder. IMPRESSION: Normal 1-view abdomen x-ray. RADIA
== END 2019-07-06 23:59 | disposition home or self-care (01) ==
LOC: DI.WCP 15:32
PROVIDERS: ATTEND Family Medicine
DX: R10.9 Unspecified abdominal pain (principal)
CPT/HCPCS: 74018; 87086

== ENCOUNTER 2019-07-09 16:42 | Emergency (ER) | payer MEDICAID ==
[2019-07-09] MEDS ORDERED: LIDOCAINE-MPF 2% 5 ML in SODIUM CHLORIDE 0.9% 50 ML IV STA (17:09)
--- NOTE | 2019-07-09 17:11 | ED Physician Documentation ---
History of Present Illness - Stated complaint Stated Complaint: LT RIB, BACK,LT SHOULDER PX - Chief complaint Chief Complaint: Abd Pain - History obtained from History obtained from: Patient - History of Present Illness Timing: How many days ago (9) Pain level max: 8 Pain level now: 8 - Additonal information Additional information: L flank pain x 9 days. Patient with a history of renal stones. She states that she thinks this feels different. She saw her doctor 3 days ago and was placed on Bactrim for possible UTI. No fevers. No urinary symptoms. She states she did have blood in her urine on the urine dip. No diarrhea. No constipation. Worse with movement and palpation, better with rest. 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: Ovarian cysts : Kidney stones HEENT: Other Psych: None Musculoskeletal: Osteoarthritis Derm: None - Past Surgical History Past Surgical History: Yes Ortho: ACL reconstruction, Arthroscopic surgery, Other /HOT SAW HELPER: Dilation and currettage, Other - Present Medications Home Medications: Ambulatory Orders Medication Instructions Recorded Confirmed lisinopriL [Lisinopril] 10 mg PO DAILY 06/25/16 06/25/16 Gabapentin 1 tab PO DAILY 07/04/17 07/04/17 Meloxicam 1 tab PO DAILY 07/04/17 07/04/17 methocarbamoL [Robaxin] 1 tab PO DAILY 07/04/17 07/04/17 Amox/Clav 875/125 [Augmentin] 1 each PO Q12H #20 tablet 08/18/18 Esomeprazole Magnesium [Nexium] 20 mg PO DAILY #30 capsule. 07/09/19 Hydrocodone/Acetaminophen 1 - 2 each PO Q6H PRN #10 tablet 07/09/19 [Hydrocodon-Acetaminophen 5-325] - Allergies Allergies/Adverse Reactions: Allergies Allergy/AdvReac Type Severity Reaction Status Date / Time oxycodone HCl * AdvReac Mild Itching Verified 07/09/19 16:47 [From Percocet] propoxyphene napsylate * AdvReac Mild Itching Verified 07/09/19 16:47 [From Darvocet-N] hydromorphone HCl * AdvReac Itching Verified 07/09/19 16:47 [From Dilaudid] - Social History Does the pt smoke?: Yes Smoking Status: Current every day smoker Does the pt drink ETOH?: Yes Does the pt have substance abuse?: No - Immunizations Immunizations are current?: Yes - POLST Patient has POLST: No PD ED PE NORMAL - Vitals Vital signs reviewed: Yes - General General: Alert and oriented X 3, No acute distress, Well developed/nourished - HEENT HEENT: Moist mucous membranes - Neck Neck: Supple, no meningeal sign - Cardiac Cardiac: RRR, Strong equal pulses - Respiratory Respiratory: No respiratory distress, Clear bilaterally - Abdomen Abdomen: Soft, Non tender, Non distended - Back Back: No spinal TTP, Other (Left CVA tenderness. Also tender to palpation over the left lower ribs. No peritoneal signs.) - Derm Derm: Warm and dry - Extremities Extremities: No edema, No calf tenderness / cord - Neuro Neuro: Alert and oriented X 3 - Psych Psych: Normal mood, Normal affect Results - Vitals Vitals: Vital Signs - 24 hr 07/09/19 07/09/19 07/09/19 16:48 18:19 19:21 Temperature 36.5 C 36.2 C L 36.4 C L Heart Rate 83 80 72 Respiratory 16 12 16 Rate Blood Pressure 149/105 H 151/86 H 177/107 H O2 Saturation 96 98 99 07/09/19 19:58 Temperature Heart Rate 69 Respiratory 18 Rate Blood Pressure 182/112 H O2 Saturation 100 Oxygen O2 Source Room air - Labs Labs: Laboratory Tests 07/09/19 07/09/19 07/09/19 16:15 17:05 17:05 WBC 7.4 RBC 5.26 Hgb 15.6 Hct 46.6 MCV 88.6 MCH 29.7 MCHC 33.5 RDW 13.9 Plt Count 283 MPV 9.7 Neut # (Auto) 4.9 Lymph # (Auto) 1.9 [place] # (Auto) 0.4 Eos # (Auto) 0.0 Baso # (Auto) 0.1 Absolute Nucleated RBC 0.00 Nucleated RBC % 0.0 Sodium 137 Potassium 3.8 Chloride 102 Carbon Dioxide 25 Anion Gap 10.0 BUN 13 Creatinine 1.2 H Estimated GFR (MDRD) 47 L Glucose 97 Calcium 9.2 Total Bilirubin 0.3 AST 18 ALT 14 Alkaline Phosphatase 103 Total Protein 8.6 H Albumin 4.6 Globulin 4.0 Albumin/Globulin Ratio 1.1 Lipase 37 Urine Color YELLOW Urine Clarity CLEAR Urine pH 6.5 Ur Specific [place] 1.015 Urine Protein NEGATIVE Urine Glucose (UA) NEGATIVE Urine Ketones NEGATIVE Urine Occult Blood TRACE-INTA Urine Nitrite NEGATIVE Urine Bilirubin NEGATIVE Urine Urobilinogen 0.2 (NORMAL) Ur Leukocyte Esterase NEGATIVE Ur Microscopic Review NOT INDICATED Urine Culture Comments NOT INDICATED - Rads (name of study) abdominal/pelvis CT Radiology: Prelim report reviewed, EMP read contemporaneously, See rad report ( No acute abdominal pathology. ) PD MEDICAL DECISION MAKING - ED course Complexity details: reviewed results, re-evaluated patient, considered differential, d/w patient ED course: Patient with a left flank pain of unclear etiology. Slight improvement with GI cocktail, will place on a PPI. Will prescribe a small amount of pain medication for home. She states she can take hydrocodone as long as she takes Benadryl. Patient is well-appearing, nontoxic. Afebrile. No acute findings on CT scan, there is a small left adrenal nodule and a liver hypodensity, she will follow-up with her doctor regarding these. Patient counseled regarding signs and symptoms for which I believe and urgent re-evaluation would be necessary. Patient with good understanding of and agreement to plan and is comfortable going home at this time This document was made in part using voice recognition software. While efforts are made to proofread this document, sound alike and grammatical errors may occur. Departure - Departure Disposition: 01 Home, Self Care Clinical Impression: Flank pain Condition: Good Instructions: ED Abdominal Pain Unkn Cause Follow-Up: CECILY VAIL MD [Primary Care Provider] - Within 1 week Prescriptions: Esomeprazole Magnesium [Nexium] 20 mg PO DAILY #30 capsule. Hydrocodone/Acetaminophen [Hydrocodon-Acetaminophen 5-325] 1 - 2 each PO Q6H PRN #10 tablet PRN Reason: pain Comments: The cause of your symptoms is unclear today. There are no acute findings on your CAT scan or your laboratory testing. Follow-up with your doctor for further care. Return if you worsen. Do not drink alcohol or drive while on narcotic pain medicine. Note that many narcotic pain relievers also contain tylenol/acetaminophen. Please ensure that your total dose of acetaminophen from all sources does not exceed 3 grams (3000mg) per day. You may constipated on this medication, take a stool softener such as "Colace" twice a day while you are on it. Also recommend a ebrd-yxe-kqvfptn laxative such as senna or MiraLAX any day that you do not have a bowel movement. If you received narcotic pain medication in the emergency department, do not drive or operate machinery for the next 24 hours.
[2019-07-09 17:24] LABS: BILIRUBIN,URINE NEGATIVE (NEGATIVE); GLUCOSE, URINE (UA) NEGATIVE (NEGATIVE); KETONES,URINE (UA) NEGATIVE (NEGATIVE); LEUKOCYTE ESTERASE, URINE NEGATIVE (NEGATIVE); NITRITE,URINE NEGATIVE (NEGATIVE); OCCULT BLOOD,URINE TRACE-INTA (NEGATIVE); PH,URINE 6.5 PH (5.0-7.5); PROTEIN,URINE NEGATIVE (NEGATIVE); UROBILINOGEN,URINE 0.2 (NORMAL) E.U./dL (NORMAL)
[2019-07-09 17:25] LABS: BASOPHILS # (AUTO) 0.1 10^3/uL (0.0-0.1); BASOPHILS % (AUTO) 1.1 %; EOSINOPHILS % (AUTO) 0.5 %; HGB - HEMOGLOBIN 15.6 g/dL (12.0-16.0); LYMPHOCYTES # (AUTO) 1.9 10^3/uL (1.5-3.5); LYMPHOCYTES % (AUTO) 26.3 %; MEAN CORPUSCULAR HEMOGLOBIN 29.7 pg (27.0-31.0); MEAN CORPUSCULAR HGB CONC 33.5 g/dL (32.0-36.0); MEAN CORPUSCULAR VOLUME 88.6 fL (81.0-99.0); MEAN PLATELET VOLUME 9.7 fL (7.9-10.8); MONOCYTES # (AUTO) 0.4 10^3/uL (0.0-1.0); MONOCYTES % (AUTO) 5.5 %; NEUTROPHILS # (AUTO) 4.9 10^3/uL (1.5-6.6); NEUTROPHILS % (AUTO) 66.3 %; PLT - PLATELET COUNT 283 10^3/uL (130-450); RED BLOOD COUNT 5.26 10^6/uL (4.20-5.40); RED CELL DISTRIBUTION WIDTH 13.9 % (12.0-15.0); WHITE BLOOD COUNT 7.4 x10^3/uL (4.8-10.8)
[2019-07-09 17:29] LABS: CLARITY,URINE CLEAR (CLEAR)
[2019-07-09] MEDS ORDERED: IOVERSOL 320 100 ML VIAL IVP ONE ×2 (17:45→19:20)
[2019-07-09 17:46] LABS: ALBUMIN 4.6 g/dL (3.2-5.5); ALBUMIN/GLOBULIN RATIO 1.1 (1.0-2.2); BILIRUBIN,TOTAL 0.3 mg/dL (0.2-1.0); CALCIUM 9.2 mg/dL (8.5-10.3); CREATININE 1.2 mg/dL (0.4-1.0); TOTAL PROTEIN 8.6 g/dL (6.7-8.2)
[2019-07-09] MEDS ORDERED: SODIUM CHLORIDE 0.9% 1,000 ML IV ONE ×2 (17:49)
--- NOTE | 2019-07-09 18:56 | CT Report ---
Reason: LUQ abd pain, L flank pain Procedure Date: 07/09/2019 Accession Number: [id number] / [id number] Procedure: CT - Abdomen/Pelvis W CPT Code: Final Report FULL RESULT: EXAM: CT ABDOMEN AND PELVIS EXAM DATE: 07/09/2019 06:06 PM. CLINICAL HISTORY: LUQ abd pain, L flank pain. COMPARISONS: ABDOMEN/PELVIS W/O 07/10/2015 5:37 PM. TECHNIQUE: Routine helical CT imaging was performed through the abdomen and pelvis. IV contrast: OPTIRAY 320. Enteric contrast: No. Reconstructions: Coronal and sagittal. In accordance with CT protocol optimization, one or more of the following dose reduction techniques were utilized for this exam: automated exposure control, adjustment of mA and/or KV based on patient size, or use of iterative reconstructive technique. FINDINGS: Lung Bases: Bilateral dependent atelectasis and scarring. Liver: A 1 cm simple cyst in left lobe of liver. No concerning masses. Gallbladder/Bile Ducts: Unremarkable. Spleen: Normal. Pancreas: Normal. Adrenal Glands: An 11 mm left adrenal nodule is suggestive of adenoma. Kidneys: Normal. No masses or hydronephrosis. Peritoneal Cavity/Bowel: Normal. No free fluid, free air or adenopathy. No masses or acute inflammatory process. The appendix is well visualized and normal. Pelvic Organs: Normal. The bladder and visualized pelvic organs are within normal limits. Vasculature: No aneurysms or other significant abnormality. Bones: No significant abnormality. Other: None. IMPRESSION: No acute abdominal pathology. RADIA
[2019-07-09] MEDS ORDERED: MAG HYDROX/AL HYDROX/SIMETH 30 ML UDC PO STA (19:15)
[2019-07-09] MEDS ORDERED: FAMOTIDINE 20 MG TABLET PO STA (19:15)
[2019-07-09] MEDS ORDERED: LIDOCAINE VISCOUS 2% 15 ML UDC MM STA (19:15)
[2019-07-09] MEDS ORDERED: SUCRALFATE 1 GM/10 ML UDC PO STA (19:16)
[2019-07-09] MEDS ORDERED: diphenhydrAMINE 25 MG CAPSULE PO STA (19:53)
[2019-07-09] MEDS ORDERED: HYDROcod/ACETAM 5/325 MG TABLET PO STA (19:53)
[2019-07-09 20:16] VITALS: BP 168/99
== END 2019-07-09 20:16 | disposition home or self-care (01) ==
LOC: ED 16:42
DX: R10.9 Unspecified abdominal pain (principal); I10 Essential (primary) hypertension; F17.200 Nicotine dependence, unspecified, uncomplicated
CPT/HCPCS: 36415; 74177; 80053; 81003; 83690; 85025; 96361; 96374; 99284; A9270; J7040; Q9967; 81001; 87086

== ENCOUNTER 2020-03-14 15:16 | Outpatient (CLI) | payer MEDICAID ==
[2020-03-14 18:15] LABS: BASOPHILS # (AUTO) 0.1 10^3/uL (0.0-0.1); BASOPHILS % (AUTO) 1.7 %; EOSINOPHILS # (AUTO) 0.1 10^3/uL (0.0-0.7); EOSINOPHILS % (AUTO) 1.3 %; HGB - HEMOGLOBIN 14.4 g/dL (12.0-16.0); LYMPHOCYTES % (AUTO) 36.5 %; MEAN CORPUSCULAR HEMOGLOBIN 29.4 pg (27.0-31.0); MEAN CORPUSCULAR HGB CONC 33.2 g/dL (32.0-36.0); MEAN CORPUSCULAR VOLUME 88.8 fL (81.0-99.0); MEAN PLATELET VOLUME 10.8 fL (7.9-10.8); MONOCYTES # (AUTO) 0.4 10^3/uL (0.0-1.0); MONOCYTES % (AUTO) 7.3 %; NEUTROPHILS # (AUTO) 2.8 10^3/uL (1.5-6.6); PLT - PLATELET COUNT 233 10^3/uL (130-450); RED BLOOD COUNT 4.89 10^6/uL (4.20-5.40); RED CELL DISTRIBUTION WIDTH 13.2 % (12.0-15.0); WHITE BLOOD COUNT 5.3 x10^3/uL (4.8-10.8)
[2020-03-14 18:30] LABS: ALBUMIN 4.3 g/dL (3.2-5.5); ALBUMIN/GLOBULIN RATIO 1.3 (1.0-2.2); BILIRUBIN,TOTAL 0.6 mg/dL (0.2-1.0); CALCIUM 9.5 mg/dL (8.5-10.3); CREATININE 0.9 mg/dL (0.4-1.0); TOTAL PROTEIN 7.5 g/dL (6.7-8.2)
[2020-03-14 18:46] LABS: FREE T3 3.06 pg/mL (2.5-3.9)
[2020-03-14 18:47] LABS: THYROID STIMULATING HORMONE 2.65 uIU/mL (0.34-5.60)
[2020-03-14 18:49] LABS: FREE T4 (FREE THYROXINE) 0.84 ng/dL (0.58-1.64)
== END 2020-03-14 23:59 | disposition home or self-care (01) ==
LOC: LAB.WCP 15:16
PROVIDERS: ATTEND Family Medicine
DX: F41.9 Anxiety disorder, unspecified (principal); M79.7 Fibromyalgia; F32.9 Major depressive disorder, single episode, unspecified; M54.12 Radiculopathy, cervical region
CPT/HCPCS: 36415; 80050; 84439; 84481; 85651

== ENCOUNTER 2021-04-22 07:00 | Outpatient (CLI) | payer MEDICAID ==
[2021-04-22 18:40] LABS: BASOPHILS # (AUTO) 0.1 10^3/uL (0.0-0.1); BASOPHILS % (AUTO) 1.2 %; EOSINOPHILS # (AUTO) 0.1 10^3/uL (0.0-0.7); EOSINOPHILS % (AUTO) 1.2 %; HCT - HEMATOCRIT 42.7 % (37.0-47.0); HGB - HEMOGLOBIN 13.9 g/dL (12.0-16.0); LYMPHOCYTES # (AUTO) 1.6 10^3/uL (1.5-3.5); LYMPHOCYTES % (AUTO) 32.2 %; MEAN CORPUSCULAR HEMOGLOBIN 29.9 pg (27.0-31.0); MEAN CORPUSCULAR HGB CONC 32.6 g/dL (32.0-36.0); MEAN CORPUSCULAR VOLUME 91.8 fL (81.0-99.0); MEAN PLATELET VOLUME 11.4 fL (7.9-10.8); MONOCYTES # (AUTO) 0.4 10^3/uL (0.0-1.0); MONOCYTES % (AUTO) 7.5 %; NEUTROPHILS # (AUTO) 2.8 10^3/uL (1.5-6.6); NEUTROPHILS % (AUTO) 57.7 %; PLT - PLATELET COUNT 195 10^3/uL (130-450); RED BLOOD COUNT 4.65 10^6/uL (4.20-5.40); RED CELL DISTRIBUTION WIDTH 13.3 % (12.0-15.0); WHITE BLOOD COUNT 4.8 x10^3/uL (4.8-10.8)
[2021-04-22 19:13] LABS: ALBUMIN 3.9 g/dL (3.2-5.5); ALBUMIN/GLOBULIN RATIO 1.2 (1.0-2.2); BILIRUBIN,TOTAL 0.7 mg/dL (0.2-1.0); CALCIUM 8.9 mg/dL (8.5-10.3); POTASSIUM 4.4 mmol/L (3.5-5.0); TOTAL PROTEIN 7.1 g/dL (6.7-8.2)
[2021-04-22 19:22] LABS: THYROID STIMULATING HORMONE 1.89 uIU/mL (0.34-5.60)
== END 2021-04-22 23:59 | disposition home or self-care (01) ==
LOC: LAB.WCP 07:00
PROVIDERS: ATTEND Family Medicine
DX: I10 Essential (primary) hypertension (principal); M48.02 Spinal stenosis, cervical region; R26.81 Unsteadiness on feet; G89.29 Other chronic pain; K21.9 Gastro-esophageal reflux disease without esophagitis; F33.1 Major depressive disorder, recurrent, moderate; M79.7 Fibromyalgia
CPT/HCPCS: 36415; 80050

== ENCOUNTER 2022-01-15 11:29 | Outpatient (CLI) | payer MEDICAID ==
[2022-01-15 17:35] LABS: BASOPHILS # (AUTO) 0.1 10^3/uL (0.0-0.1); BASOPHILS % (AUTO) 1.6 %; EOSINOPHILS # (AUTO) 0.1 10^3/uL (0.0-0.7); EOSINOPHILS % (AUTO) 2.6 %; HCT - HEMATOCRIT 44.1 % (37.0-47.0); HGB - HEMOGLOBIN 14.2 g/dL (12.0-16.0); LYMPHOCYTES # (AUTO) 1.7 10^3/uL (1.5-3.5); LYMPHOCYTES % (AUTO) 38.8 %; MEAN CORPUSCULAR HEMOGLOBIN 29.7 pg (27.0-31.0); MEAN CORPUSCULAR HGB CONC 32.2 g/dL (32.0-36.0); MEAN CORPUSCULAR VOLUME 92.3 fL (81.0-99.0); MONOCYTES # (AUTO) 0.4 10^3/uL (0.0-1.0); MONOCYTES % (AUTO) 9.1 %; NEUTROPHILS # (AUTO) 2.1 10^3/uL (1.5-6.6); NEUTROPHILS % (AUTO) 47.7 %; PLT - PLATELET COUNT 230 10^3/uL (130-450); RED BLOOD COUNT 4.78 10^6/uL (4.20-5.40); WHITE BLOOD COUNT 4.3 x10^3/uL (4.8-10.8)
[2022-01-15 18:09] LABS: ALBUMIN 4.2 g/dL (3.2-5.5); ALBUMIN/GLOBULIN RATIO 1.3 (1.0-2.2); BILIRUBIN,TOTAL 0.5 mg/dL (0.2-1.0); CALCIUM 9.3 mg/dL (8.5-10.3); CREATININE 0.9 mg/dL (0.4-1.0); POTASSIUM 4.2 mmol/L (3.5-5.0); TOTAL PROTEIN 7.5 g/dL (6.7-8.2)
[2022-01-15 18:17] LABS: FREE T3 3.09 pg/mL (2.5-3.9); THYROID STIMULATING HORMONE 2.86 uIU/mL (0.34-5.60)
[2022-01-15 18:19] LABS: FREE T4 (FREE THYROXINE) 0.8 ng/dL (0.58-1.64)
== END 2022-01-15 11:30 | disposition home or self-care (01) ==
LOC: LAB.N 11:29
PROVIDERS: ATTEND Family Medicine
DX: M17.12 Unilateral primary osteoarthritis, left knee (principal); G89.29 Other chronic pain; R63.4 Abnormal weight loss; M48.02 Spinal stenosis, cervical region
CPT/HCPCS: 36415; 80050; 84439; 84481

== ENCOUNTER 2022-09-24 08:48 | Outpatient (CLI) | payer MEDICAID ==
[2022-09-24 12:07] LABS: BASOPHILS # (AUTO) 0.1 10^3/uL (0.0-0.1); BASOPHILS % (AUTO) 1.5 %; EOSINOPHILS # (AUTO) 0.1 10^3/uL (0.0-0.7); HCT - HEMATOCRIT 44.4 % (37.0-47.0); HGB - HEMOGLOBIN 14.5 g/dL (12.0-16.0); LYMPHOCYTES # (AUTO) 1.7 10^3/uL (1.5-3.5); LYMPHOCYTES % (AUTO) 37.2 %; MEAN CORPUSCULAR HEMOGLOBIN 29.5 pg (27.0-31.0); MEAN CORPUSCULAR HGB CONC 32.7 g/dL (32.0-36.0); MEAN CORPUSCULAR VOLUME 90.4 fL (81.0-99.0); MEAN PLATELET VOLUME 10.7 fL (7.9-10.8); MONOCYTES # (AUTO) 0.4 10^3/uL (0.0-1.0); MONOCYTES % (AUTO) 9.2 %; NEUTROPHILS # (AUTO) 2.3 10^3/uL (1.5-6.6); NEUTROPHILS % (AUTO) 48.9 %; PLT - PLATELET COUNT 254 10^3/uL (130-450); RED BLOOD COUNT 4.91 10^6/uL (4.20-5.40); RED CELL DISTRIBUTION WIDTH 13.3 % (12.0-15.0); WHITE BLOOD COUNT 4.7 x10^3/uL (4.8-10.8)
[2022-09-24 12:30] LABS: ALBUMIN 4.1 g/dL (3.2-5.5); ALBUMIN/GLOBULIN RATIO 1.2 (1.0-2.2); ALKALINE PHOSPHATASE 77 IU/L (42-121); ALT ALANINE AMINOTRANSFERASE 15 IU/L (10-60); AST ASPARTATE AMINOTRANSFERASE 21 IU/L (10-42); BILIRUBIN,TOTAL 0.5 mg/dL (0.2-1.0); BUN - BLOOD UREA NITROGEN 12 mg/dL (6-20); CALCIUM 9.1 mg/dL (8.5-10.3); CARBON DIOXIDE - CO2 31 mmol/L (21-32); CHLORIDE 104 mmol/L (101-111); CHOL/HDL RATIO 3.8 (<4.4); CHOLESTEROL 245 mg/dL; GFR - MDRD 58 (>89); GLUCOSE 97 mg/dL (70-100); HDL CHOLESTEROL 64 mg/dL; LDL CHOLESTEROL,CALCULATED 156 mg/dL; LDL/HDL RATIO 2.4 (<4.4); POTASSIUM 3.8 mmol/L (3.5-5.0); SODIUM 141 mmol/L (135-145); TOTAL PROTEIN 7.5 g/dL (6.7-8.2); TRIGLYCERIDES 123 mg/dL; VLDL CHOLESTEROL 25 mg/dL
[2022-09-24 12:39] LABS: THYROID STIMULATING HORMONE 3.38 uIU/mL (0.34-5.60)
== END 2022-09-24 08:49 | disposition home or self-care (01) ==
LOC: LAB.N 08:48
PROVIDERS: ATTEND Family Medicine
DX: I10 Essential (primary) hypertension (principal); E53.8 Deficiency of other specified B group vitamins; F32.9 Major depressive disorder, single episode, unspecified
CPT/HCPCS: 36415; 80050; 80061; 83721

== ENCOUNTER 2022-12-05 11:47 | Outpatient (CLI) | payer MEDICAID ==
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
== END 2022-12-05 11:48 | disposition home or self-care (01) ==
LOC: DI 11:47
PROVIDERS: ATTEND Family Medicine
DX: M24.80 Other specific joint derangements of unspecified joint, not elsewhere classified (principal); M48.02 Spinal stenosis, cervical region; M47.812 Spondylosis without myelopathy or radiculopathy, cervical region

== ENCOUNTER 2023-06-06 08:00 | Outpatient (CLI) | payer MEDICAID ==
[2023-06-06 19:28] LABS: FECAL OCCULT BLOOD (FIT) NEGATIVE (NEGATIVE)
== END 2023-06-06 23:59 | disposition home or self-care (01) ==
LOC: LAB.N 08:00
PROVIDERS: ATTEND Family Medicine
DX: Z12.11 Encounter for screening for malignant neoplasm of colon (principal)
CPT/HCPCS: 82274

== ENCOUNTER 2023-10-07 12:15 | Outpatient (CLI) | payer MEDICAID | END 2023-10-07 23:59 | disposition critical access hospital (66) | LOC: EMS 12:15 | DX: S81.031A Puncture wound without foreign body, right knee, initial encounter (principal); Y28.1XXA Contact with knife, undetermined intent, initial encounter; S61.210A Laceration without foreign body of right index finger without damage to nail, initial encounter; W54.0XXA Bitten by dog, initial encounter; Y93.K9 Activity, other involving animal care; Y92.59 Other trade areas as the place of occurrence of the external cause | CPT/HCPCS: A0425; A0429; A0999 ==

== ENCOUNTER 2023-10-07 12:35 | Emergency (ER) | payer MEDICAID, OTHER ==
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
[2023-10-07] MEDS: BUPIVACAINE 0.5% PF 10 ML VIAL IM ONE (12:56)
[2023-10-07] MEDS: AMOX/CLAV 875 MG/125 MG TABLET PO STA (12:57)
[2023-10-07] MEDS: TETANUS/DIPHTHERIA/PERTUSSIS 0.5 ML SYRINGE IM ONE (12:57)
[2023-10-07] MEDS: ACETAMINOPHEN 325 MG TABLET PO STA (13:01)
[2023-10-07] MEDS: ACETAMINOPHEN 500 MG TABLET PO STA (13:02)
--- NOTE | 2023-10-07 13:22 | XRAY Report ---
PROCEDURE: Finger(s) RT INDICATIONS: no foreign body TECHNIQUE: AP hand, 2 views of the second finger(s) acquired. COMPARISON: None. FINDINGS: Bones: No fractures or dislocations. No suspicious bony lesions. Soft tissues: Small radiodensities are noted in soft tissue over radial and volar aspect of second p roximal phalangeal base. IMPRESSION: No acute fracture or dislocation. Possible tiny linear foreign bodies in soft tissue over radial and volar aspect of second proximal phalangeal base. Reviewed by: Raghu Wilson MD on 10/07/2023 1:21 PM PDT Approved by: Raghu Wilson MD on 10/07/2023 1:21 PM PDT Station ID: [id number]
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
[2023-10-07] MEDS: BACITRACIN ZINC OINT 1 PACKET TOP STA (15:26)
[2023-10-07 16:23] VITALS: BP 154/99; O2SAT 100
== END 2023-10-07 16:14 | disposition home or self-care (01) ==
LOC: EDUNIT# → ED 12:35
DX: S81.011A Laceration without foreign body, right knee, initial encounter (principal); S61.250A Open bite of right index finger without damage to nail, initial encounter; W54.0XXA Bitten by dog, initial encounter; W26.0XXA Contact with knife, initial encounter; Z23 Encounter for immunization; I10 Essential (primary) hypertension; Z87.442 Personal history of urinary calculi; F17.200 Nicotine dependence, unspecified, uncomplicated
CPT/HCPCS: 12002; 73140; 73562; 90471; 90715; 99283; 99284; A9270